=== PATIENT | male | born 1980 | race Caucasian/White ===

== ENCOUNTER 2021-12-12 05:40 | Day surgery (SDC) | payer OTHER ==
[~2021-12-12 05:40] MED LIST: RINGERS SOLUTION,LACTATED 1,000 ML IV ONE
[2021-12-12] MEDS ORDERED: BUPIVACAINE HCL/PF 0.5% 30 ML VIAL ONE (06:24)
[2021-12-12] MEDS ORDERED: LIDOCAINE/PF 1% 30 ML VIAL ONE (06:24)
[2021-12-12] MEDS ORDERED: RINGERS SOLUTION,LACTATED 1,000 ML IV ONE (06:36)
[2021-12-12] MEDS ORDERED: TAMS-13 PO (07:35)
[2021-12-12] MEDS ORDERED: HYDROmorphone 2 MG/ML VIAL IVP PRN (08:15)
[2021-12-12] MEDS ORDERED: FentaNYL CITRATE PF 100 MCG/2 ML VIAL IVP PRN (08:15)
[2021-12-12] MEDS ORDERED: MEPERIDINE-PF 25 MG/ML VIAL IVP PRN (08:15)
[2021-12-12 09:49] LABS: COVID AG,FIA SOURCE NASAL SWAB
[2021-12-12] MEDS ORDERED: SUCCINYLCHOLINE CHLORIDE 20 MG/ML 10 ML VIAL IVP ONE (12:00)
[2021-12-12] MEDS ORDERED: ONDANSETRON HCL 4 MG/2 ML VIAL IVP ONE (12:00)
[2021-12-12] MEDS ORDERED: PROPOFOL 1% 20 ML VIAL IVP ONE (12:00)
[2021-12-12] MEDS ORDERED: MIDAZOLAM HCL 2 MG/2 ML VIAL IVP ONE (12:00)
[2021-12-12] MEDS ORDERED: FentaNYL CITRATE PF 100 MCG/2 ML VIAL IVP ONE (12:00)
[2021-12-12] MEDS ORDERED: LIDOCAINE/PF 2% 5 ML VIAL IM ONE (12:00)
[2021-12-12] MEDS ORDERED: OXYGEN THERAPY IH SCH (20:00)
[2021-12-12] MEDS ORDERED: TAMSULOSIN HCL 0.4 MG CAPSULE PO SCH (21:00)
== END 2021-12-12 11:15 | disposition home or self-care (01) ==
LOC: SURGERY 05:40
PROVIDERS: ATTEND Urology
DX: N47.6 Balanoposthitis (principal); Z79.899 Other long term (current) drug therapy; Z98.890 Other specified postprocedural states; Z86.11 Personal history of tuberculosis; G89.29 Other chronic pain
CPT/HCPCS: 54161; 87426; 88302; C9803; J0330; J0690; J2250; J2405; J2704; J3010; J3490 ×2; J7120